=== PATIENT | male | born 1965 | race Caucasian/White ===

== ENCOUNTER 2018-03-29 15:33 | Emergency (ER) | payer OTHER ==
[2018-03-29] MEDS: Ibuprofen TAB* 400 MG PO ONE (16:16)
--- NOTE | 2018-03-29 16:27 | RAD ---
HISTORY: crush injury with steel beams. severe pain COMPARISONS: None VIEWS: 6, Frontal, lateral, and oblique views of the right foot and ankle FINDINGS: BONE DENSITY: Normal. BONES: There is no displaced fracture. There are calcaneal enthesophytes. 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 ALIGNMENT: There is no dislocation. SOFT TISSUES: Unremarkable. OTHER FINDINGS: None. IMPRESSION: NO ACUTE OSSEOUS INJURY. IF SYMPTOMS PERSIST, RECOMMEND REPEAT IMAGING.
--- NOTE | 2018-03-29 16:48 | UC ---
Lower Extremity/Ankle HPI - HPI Summary HPI Summary: Per mental health case manager "W. Comp--20 ft long 6" X 6" steel beam fell right foot, crushed it between another beam -occurred about 1500 today" -a friend drove him here. has composite toe work boots on. severe pain. reports personal h/o opiate addiction several years ago that he succesfully was able to get off. he states pain meds scare him and really does not want any. prefers ibuprofen. unable to bear weight. - History of Current Complaint Chief Complaint: UCLowerExtremity Stated Complaint: WC-RIGHT FOOT INJURY Time Seen by Provider: 03/29/18 15:54 Pain Intensity: 10 - Allergies/Home Medications Allergies/Adverse Reactions: Allergies Allergy/AdvReac Type Severity Reaction Status Date / Time No Known Allergies Allergy Verified 03/29/18 15:54 PMH/Surg Hx/FS Hx/Imm Hx Previously Healthy: Yes - Surgical History Surgical History: None - Family History Known Family History: Positive: Cardiac Disease, Hypertension - Social History Alcohol Use: None Substance Use Type: None Smoking Status (MU): Heavy Every Day Tobacco Smoker Type: Cigarettes Amount Used/How Often: 1 1/2 pack daily - Immunization History Most Recent Tetanus Shot: unknown Review of Systems Constitutional: Negative Skin: Negative Eyes: Negative ENT: Negative Respiratory: Negative Cardiovascular: Negative Gastrointestinal: Negative Genitourinary: Negative Motor: Negative Neurovascular: Negative Musculoskeletal: Arthralgia Neurological: Negative Psychological: Negative Is Patient Immunocompromised?: No All Other Systems Reviewed And Are Negative: Yes Physical Exam Triage Information Reviewed: Yes Appearance: Pain Distress - severe pain. in wheelchair, Vital Signs: Initial Vital Signs Temp 97.2 F 03/29/18 15:49 Pulse 58 03/29/18 15:49 Resp 16 03/29/18 15:49 BP 86/68 03/29/18 15:49 Pulse Ox 100 03/29/18 15:49 Vital Signs Reviewed: Yes Eye Exam: Normal ENT Exam: Normal Respiratory Exam: Normal Respiratory: Positive: Lungs clear Cardiovascular Exam: Normal Cardiovascular: Positive: RRR, No Murmur Musculoskeletal: Positive: Other: - right foot w/ some erythema. there is no swelling or bruising. pain is significant even w/ mild pressure over dorsal proximal foot and medial foot. CR brisk. sensation intact Neurological Exam: Normal Psychological Exam: Normal Skin Exam: Normal Lower Extremity Course/Dx - Course Course Of Treatment: xrays right foot and ankle without fracture. images and report are both reviewed. -post-op shoe and crutches given. -f/u with ortho. -discussed to watch for compartment syndrome. - Differential Dx/Diagnosis Differential Diagnosis/HQI/PQRI: Fracture (Closed), Sprain, Strain Provider Diagnoses: right foot injury Discharge - Sign-Out/Discharge Documenting (check all that apply): Patient Departure All imaging exams completed and their final reports reviewed: Yes - Discharge Plan Condition: Stable Disposition: HOME Patient Education Materials: Metatarsalgia (DC) Referrals: No Primary Care Phys,NOPCP [Primary Care Provider] - Anuj Cartagena MD [Medical Doctor] - 5 Days Additional Instructions: The xray report from your foot and ankle show no fractures. We discussed that it is possible for a fracture not to appear on xray for up to 2 weeks. Watch for swelling and numbing that may occur. You can take ibuprofen 600-800mgs every 8 hrs for pain with food. You deny any issues with kidney disease and bleeding. - Billing Disposition and Condition Condition: STABLE Disposition: Home
[2018-03-29 17:00] VITALS: BP 108/70
== END 2018-03-29 17:01 | disposition home or self-care (01) ==
LOC: UCCORT 15:33
DX: S99.921A Unspecified injury of right foot, initial encounter (principal); W20.8XXA Other cause of strike by thrown, projected or falling object, initial encounter; Y93.9 Activity, unspecified; Y92.89 Other specified places as the place of occurrence of the external cause; Y99.0 Civilian activity done for income or pay; F17.210 Nicotine dependence, cigarettes, uncomplicated
CPT/HCPCS: 99213; A9270-GY; G0463